=== PATIENT | female | born 1945 | race Caucasian/White ===

== ENCOUNTER → 2022-09-27 12:22 | Outpatient (CLI) | payer MEDICARE, OTHER, SELFPAY ==
--- NOTE | 2022-09-27 12:32 | XR_ITS ---
FINAL REPORT CLINICAL HISTORY: Shortness of breath ,EMPHYSEMA,LUNG CANCER COMPARISON: None FINDINGS: Two views of the chest were obtained. The heart size and pulmonary vascularity are within normal limits. The mediastinum is normal. Right suprahilar mass measuring 4.5 cm worrisome for neoplasm. Right base nodule measuring 6 mm, uncertain if calcified. Mild right base atelectasis or scarring. There is no pneumothorax. The bony thorax is intact. IMPRESSION: 4.5 cm right suprahilar mass worrisome for neoplasm. Recommend chest CT. Reviewed, Interpreted and Dictated by Alejandro Medley III, MD Transcribed by Yanelis Ureña Authenticated and [facility]
== END ==
PROVIDERS: PCP Internal Medicine Adolescent Medicine; Visit Provider Internal Medicine Adolescent Medicine
DX: R06.02 Shortness of breath (principal); J43.1 Panlobular emphysema; C34.90 Malignant neoplasm of unspecified part of unspecified bronchus or lung
CPT/HCPCS: 71046

== ENCOUNTER 2022-10-05 07:39 | Outpatient (RCR) | payer MEDICARE, OTHER, SELFPAY ==
--- NOTE | 2022-10-05 16:41 | HMH.PTOPWND ---
Rehab Outpt Wound Evaluation Rehab OP Wound Evaluation Start: 10/05/22 16:23 Freq: Status: Active Protocol: Document 10/05/22 16:24 FRANCIS (Rec: 10/05/22 16:41 PHORNE [id number]) E-signed By Robert Matthew, PT Subjective/History History History This is the initial PT eval for Disha Ramirez, 77 yowf who presents with R inferior lateral scapula wound present for ~ 3 wks. She has hx of metastatic cancer and had a punch biopsy performed, complicated by inability to reach hemostasis at the time of service despite sutures being placed. She has had continued sanguineous drainge from the site since that time. She presents this date with a rather large area of likely hematoma with total area ~ 20 cm in circumference and an area at the center surrounding the wound ~ 5 cm in circumference that is extremely indurated and hard to palption. She is currently receiving infusion therapy for her underlying metastatic disease and is planning to start XRT treatments very soon . She currently requires constant O2 via NC. Subjective Subjective Pt reports 2/4 TTP in the wound and silver-wound skin. Significant erythema, hematoma underlying, a dry sloughing skin at the extreme borders of the hematoma. Hemostais remains unachieved and significant sanguineous drainage noted this date on her current dressing. MLD contraindicated due to active metastatic cancer and Compression results in severe pain. Wound Eval Wound Right Upper Lateral Back Wound Type Incision Is This a Chronic Wound Yes Wound Length (cm) 1.3 Wound Width (cm) 1.5 Wound Depth (cm)
== END 2022-10-05 09:40 | disposition home or self-care (01) ==
LOC: PT 07:39
PROVIDERS: Visit Provider Internal Medicine Adolescent Medicine
DX: S21.201A Unspecified open wound of right back wall of thorax without penetration into thoracic cavity, initial encounter (principal)
CPT/HCPCS: 97163

== ENCOUNTER 2022-11-16 00:04 | Inpatient (IN) | payer MEDICARE, OTHER, SELFPAY ==
[2022-11-16] VITALS (23 sets, daily range): BP systolic 98–155; BP diastolic 42–60; PULSE 81–125; RESP 18–22; TEMP 36.7–37.7; O2SAT 93–100; BMI 26.5; BMI 26.7
--- NOTE | 2022-11-16 | ECG_ITS ---
APPROVED REPORT Exam: Resting ECG HR:111 bpm ECG Measurements Heart Rate 111 AXES MD 131 P 145 QRSd 81 QRS 124 QT 338 T 38 QTc 403 Conclusion ECTOPIC ATRIAL TACHYCARDIA WITH FREQUENT VENTRICULAR PREMATURE COMPLEXES POSSIBLE RIGHT VENTRICULAR HYPERTROPHY [SOME/ALL OF: PROMINENT R IN V1, LATE TRANSITION, RAD, VICKI, SSS] ABNORMAL ECG UNCONFIRMED REPORT Electronically signed by : Harrison Carmona MD 11/17/2022 08:50:22
--- NOTE | 2022-11-16 00:29 | CT_ITS ---
PROCEDURE INFORMATION: Exam: CTA Chest With Contrast Exam date and time: 11/16/2022 1:05 AM Age: 77 years old Clinical indication: Shortness of breath; Prior surgery; Surgery date: 1-6 months; Surgery type: Right biopsy approx. 8 weeks ago; Patient HX: Right post. Soft tissue redness/swelling; Additional info: SOA, HX dvt/pe now off anticoags, HX met lung CA TECHNIQUE: Imaging protocol: Computed tomographic angiography of the chest with contrast. Exam focused on the arteries. 3D rendering (Not supervised by radiologist): MIP and/or 3D reconstructed images were created by the technologist. Radiation optimization: All CT scans at this facility use at least one of these dose optimization techniques: automated exposure control; mA and/or kV adjustment per patient size (includes targeted exams where dose is matched to clinical indication); or iterative reconstruction. Contrast material: ISOVUE; Contrast volume: 70 ml; Contrast route: INTRAVENOUS (IV); REPORTING DATA: Count of CT and Cardiac NM exams in prior 12 months: This patient has received 0 known CTs and 0 known cardiac nuclear medicine studies in the 12 months prior to the current study. COMPARISON: CR XR CHEST 2V 09/27/2022 12:53 PM FINDINGS: Pulmonary arteries: There is no intraluminal filling defect to suggest a pulmonary embolus. Aorta: Unremarkable. No aortic aneurysm. No aortic dissection. Lungs: Right suprahilar soft tissue mass measuring 4.2 cm in size. There are moderate severe emphysematous changes. There is a spiculated 0.8 x 1.3 cm right apical lesion. There are atelectatic changes of the mid and lower lung zones. Calcified granuloma is noted within superior segment left lower lobe. Pleural spaces: Unremarkable. No pneumothorax. No pleural effusion. Heart: Small pericardial effusion. Lymph nodes: There is significant right axial lymphadenopathy. Largest node measures 3.4 cm in size. Several larger nodes have necrotic central regions. 3.1 cm celiac lymph node image 114 measuring 3.1 cm having necrotic central component. Bones/joints: There are sclerotic lesions involving the C7, T8, T9, T10, T12 vertebral bodies and the sternum consistent with metastatic disease. Soft tissues: There are 2 body wall lesions noted. One posterolaterally on the right at the T9 level measuring 6.8 cm in size and having a necrotic central region. The 2nd body wall lesion is posteriorly on the right at the T10 level measuring 2.7 cm also having necrotic central component. 1.1 cm retroperitoneal soft tissue nodule on the left at the level of the mid left kidney image 129 series 5. 2.5 cm hypodense segment 3 Paddock lesion not fully characterized. IMPRESSION: 1. No pulmonary embolus. 2. 4.2 cm right suprahilar soft tissue mass consistent with primary lung neoplasm. 3. Spiculated 0.8 x 1.3 cm right apical lesion likely representing metastatic disease. 4. Right axillary lymphadenopathy and right body wall lesions consistent with metastatic disease. 5. Thoracic spine and sternal sclerotic lesions consistent with metastatic disease. 6. Upper abdominal lymphadenopathy and left retroperitoneal soft tissue nodule consistent with metastatic disease. 7. Incompletely evaluated 2.5 cm hypodense lesion segment 3 of the liver.
[2022-11-16 00:38] LABS: Basophils # 0.1 K/mm3 (0-0.2); Basophils % 0.1 % (0.1-2.0); Eosinophils % 0.3 % (0.1-12.0); Hemoglobin 7.5 g/dL (12.2-16.2); Monocytes # 1.4 K/mm3 (0.1-1.0); Monocytes % 2.9 % (1.7-9.3)
[2022-11-16 00:42] LABS: Alanine Aminotransferase 22 U/L (12-78); Albumin Level 2.6 g/dl (3.5-5.0); Albumin/Globulin Ratio 0.9 (1.1-1.8); Alkaline Phosphatase 118 U/L (38-126); Anion Gap 12.6 mEq/L (5-15); Aspartate Amino Transferase 21 U/L (14-36); Bilirubin,Total 0.4 mg/dl (0.2-1.3); Blood Urea Nitrogen 17 mg/dl (7-17); Calcium 7.9 mg/dl (8.4-10.2); Carbon Dioxide 24 mmol/L (22.0-30.0); Chloride 99 mmol/L (98-107); Estimated Glomerular Filt Rate 48 ml/min (>60); GFR (African American) 58 ML/MIN (>60); Globulin 2.8 g/dL (1.3-3.2); Glucose 147 mg/dl (74-100); Potassium 4.6 mmoL/L (3.5-5.1); Sodium 131 mmol/L (136-145); Total Protein,Serum 5.4 g/dl (6.3-8.2)
[2022-11-16 00:43] LABS: Creatinine Clearance Estimated 45 mL/min (50-200)
--- NOTE | 2022-11-16 00:45 | PC.NURSE ---
ER notified of sepsis protocol with patient, orders placed, 1set of cultures have been sent
[2022-11-16 00:48] LABS: VBG Base Excess -6.3 mmol/L (-2.4-2.3); VBG HCO3 19.7 mmol/L (23-30); VBG Oxygen Saturation 94.5 % (50-70); VBG PH 7.32 mmol/L (7.31-7.41); VBG PO2 81.4 mmol/L (28-40); VBG Total CO2 20.9 mmol/L (23-27)
--- NOTE | 2022-11-16 00:53 | ECG_ITS ---
APPROVED REPORT Exam: Resting ECG HR:100 bpm ECG Measurements Heart Rate 100 AXES DE 133 P 68 QRSd 86 QRS 61 QT 341 T 24 QTc 398 Conclusion SINUS TACHYCARDIA LOW QRS VOLTAGE IN PRECORDIAL LEADS [QRS DEFLECTION < 1.0 mV IN CHEST LEADS] POSSIBLE RIGHT VENTRICULAR CONDUCTION DELAY [RSR (QR) IN V1/V2] ABNORMAL RHYTHM ECG UNCONFIRMED REPORT Electronically signed by : Harrison Carmona MD 11/17/2022 08:50:25
[2022-11-16 00:55] LABS: Eosinophils # 0.2 K/mm3 (0.0-0.4); Hematocrit 24.7 % (37.0-47.0); Lymphocytes # 1.1 K/mm3 (0.7-4.5); Lymphocytes % 2.3 % (10-50); Mean Corpuscular HGB Conc 30.2 g/dL (31.8-35.4); Mean Corpuscular Hemoglobin 26.6 pg (27.0-31.2); Mean Platelet Volume 9.4 fl (7.4-10.4); Neutrophils # 46.2 K/mm3 (1.8-7.8); Neutrophils % 94.3 % (37.0-80.0); Platelet Count 404 K/mm3 (142-424); Red Cell Distribution Width 16.6 % (11.5-17.5)
--- NOTE | 2022-11-16 00:56 | HMH.EDGENADL ---
Discharge Plan Disposition Patient Disposition: Admitted Condition: Good Clinical Impressions Clinical Impression: Sepsis, Cellulitis, Respiratory failure, Lung cancer, primary, with metastasis from lung to other site, Hyponatremia Discharge ED Provider: Ronnie Grant General Adult HPI General Chief complaint: Shortness of Breath/Dyspnea Stated complaint: poss sepsis Time Seen by Provider: 11/16/22 00:07 Mode of Arrival: Wheelchair Source of Information: Patient and Relative Limitations: No Limitations Description of Symptoms (Recalled from ER Triage Doc. by RN): Pt was sent by pcp for sepsis, due to skin infection from punch biopsy 8 weeks ago, pt has a complex hx of stage 4 lung cx with mets. History of Present Illness HPI narrative: 77-year-old female history of stage IV lung cancer presents with multiple complaints and concern for sepsis. She was diagnosed with lung cancer last year, has gone through multiple rounds of chemo and radiation. She is currently not on any therapy. She has history of DVT and PE but has been off anticoagulation until recently due to GI bleeding (unknown source) and significant anemia. She has a chronic 3 L oxygen requirement. On arrival she reports primarily shortness of breath and pain. She has also been having intermittent fever at home for the last 3 days. She has an intermittent wet productive cough recently. She has had decreased p.o. intake of late. She has a large left-sided posterior thoracic soft tissue mass that has been present for a long time, it is larger, more erythematous, now having malodorous drainage. She had a recent CT scan which showed extensive metastatic disease, large necrotic soft tissue mass, worsening intrathoracic lymphadenopathy, small pericardial effusion. Related Data Home Medications Medication Instructions Recorded Confirmed acetaminophen 325 mg tablet 650 mg PO QID PRN Pain, Mild 11/16/22 11/16/22 (Tylenol) apixaban 2.5 mg tablet (Eliquis) 2.5 mg PO BID Blood Thinner 11/16/22 11/16/22 atorvastatin 20 mg tablet 20 mg PO HS High Cholesterol 11/16/22 11/16/22 budesonide 160 mcg-glycopyr 9 2 puff inhalation BID Breathing 11/16/22 11/16/22 mcg-formot 4.8 mcg/actuation HFA Problems inhaler (Breztri Aerosphere) bumetanide 1 mg tablet 1 mg PO DAILY Diuretic 11/16/22 11/16/22 cetirizine 10 mg tablet (Zyrtec) 10 mg PO DAILY Allergy Symptoms 11/16/22 11/16/22 ferrous gluconate 324 mg (37.5 mg 324 mg PO BID Supplement 11/16/22 11/16/22 iron) tablet guaifenesin 600 mg tablet, 600 mg PO BID Cough 11/16/22 11/16/22 extended release 12 hr (Mucinex) hydroxyzine HCl 25 mg tablet 25 mg PO HS Anxiety 11/16/22 11/16/22 ipratropium 0.5 mg-albuterol 3 mg 3 ml inhalation Q4H PRN Breathing 11/16/22 11/16/22 (2.5 mg base)/3 mL nebulization Problems soln levothyroxine 25 mcg tablet 25 mcg PO DAILY Thyroid 11/16/22 11/16/22 (Synthroid) metoprolol succinate 25 mg 25 mg PO DAILY High Blood Pressure 11/16/22 11/16/22 tablet,extended release 24 hr (Toprol XL) mirtazapine 15 mg tablet 15 mg PO HS Restless legs 11/16/22 11/16/22 oxycodone 5 mg tablet 5 mg PO Q4H PRN Pain, Moderate 11/16/22 11/16/22 pantoprazole 40 mg tablet,delayed 40 mg PO DAILY Acid Reflux 11/16/22 11/16/22 release (Protonix) potassium chloride 20 mEq 10 meq PO BID Supplement 11/16/22 11/16/22 tablet,extended release pregabalin 25 mg capsule 25 mg PO HS Restless legs 11/16/22 11/16/22 roflumilast 500 mcg tablet 500 mcg PO DAILY Copd 11/16/22 11/16/22 (Daliresp) Allergies Allergy/AdvReac Type Severity Reaction Status Date / Time No Known Allergies Allergy Verified 11/16/22 00:33 [facility] Disclaimer: The information contained in this section may have been updated after the patient was seen, as this information can be updated by other users. Medical History (Updated 11/16/22 @ 02:55 by Ronnie Grant MD) Chronic pain COPD (chronic obstructive pulmonary disease) DVT (deep
[2022-11-16 01:00] LABS: MANUAL DIFFERENTIAL MANUAL DIFFERENTIAL (MANUAL DIFF)
--- NOTE | 2022-11-16 01:00 | PC.NURSE ---
Critical WBC of 49 reported to
[2022-11-16 01:26] LABS: Lymphocytes % 4 % (10-50); Monocytes % 2 % (2-9); Neutrophils % 73 % (42-76); Platelet Estimate Normal; RBC Morphology Normal; Total Cells Counted 100
[2022-11-16 01:27] LABS: Hypochromasia 1+
--- NOTE | 2022-11-16 02:59 | PC.NURSE ---
Report to RASHE[facility] Medina. Awaiting transport from 2nd floor
--- NOTE | 2022-11-16 03:13 | PC.NURSE ---
Patient arrived to floor via stretcher at 03:12.
[2022-11-16 03:28] LABS: Appearance,Urine CLEAR (Clear); Bilirubin,Urine Negative (Negative); Blood, Urine 2+ (Negative); Color,Urine YELLOW (Yellow); Glucose,Urine (UA) Negative (Negative); Ketones,Urine Negative (Negative); Leukocyte Esterase,Urine Negative (Negative); Microscopic, Urine URINE MICROSCOPIC (MICROSCOPIC); Nitrate,Urine Negative (Negative); Protein,Urine TRACE (Negative); Urobilinogen,Urine 0.2 EU/dl (0.2)
[2022-11-16 03:50] LABS: RBC,Urine 20-50 #/hpf (0-3); Squamous Epithelial Cell,Urine 20-50 #/hpf (0-5)
--- NOTE | 2022-11-16 07:53 | US_ITS ---
FINAL REPORT CLINICAL HISTORY: right upper back mass - eval for fluid/abscess FINDINGS: US CHEST Limited sonographic images were obtained of the right back. At the area of interest is a heterogeneous mass measuring 6.7 x 6.7 cm most worrisome for neoplasm. IMPRESSION: 6.7 cm mass at the area of interest most worrisome for neoplasm. Reviewed, Interpreted and Dictated by Alejandro Medley III, MD Transcribed by Lobo Go Authenticated and [facility]
--- NOTE | 2022-11-16 07:56 | EXP.HP ---
History of Present Illness *Admission Date: 11/16/22 *Reason for visit:: Sepsis, back cellulitis, metastatic lung cancer *History of present illness: 77-year-old female with history of COPD, and lung cancer, diagnosed several months ago, with widespread metastasis to bone, liver, now pancreas, lymph nodes and right back chest wall. She, approximately 6 weeks ago, had a biopsy of the chest wall spot done in [place], it was a punch biopsy and as the patient was on Eliquis at the time she had significant bleeding. The bleeding was attempted to be stopped with silver nitrate application but moderately unsuccessful. She continued to bleed, had a lot of swelling and pain. I saw her a couple of days after the incident we prescribed antibiotics which seemed to improve her situation. In the interim, she has been in [place] getting chemotherapy and radiation, her last session was 6 weeks ago[address] Had a CT scan 2 days ago that unfortunately showed significant disease progression and spite of aggressive chemotherapy. Late last night she began to have fevers, increasing drainage from the right back tumor, surrounding redness and tachycardia. Brought to the ER here given her preference to be admitted at [facility] rather than in [place] secondary to family location here. In the ER she was found to have significant leukocytosis, evidence of sepsis with tachycardia, given Zosyn and vancomycin and admitted to the hospital. This morning she is in good spirits, pleasant in spite of her disease and pain and reports that she is little short of breath at baseline and otherwise more comfortable than on admission. [facility] Disclaimer: The information contained in this section may have been updated after the patient was seen, as this information can be updated by other users. Medical History (Updated 11/16/22 @ 02:55 by Ronnie Grant MD) Chronic pain COPD (chronic obstructive pulmonary disease) DVT (deep venous thrombosis) GI bleed Hypertension Pulmonary embolism RLS (restless legs syndrome) Seasonal allergic rhinitis Stage IV squamous cell carcinoma of lung Surgical History (Updated 11/16/22 @ 03:58 by Carol Dickson RN) History of appendectomy Family History (Updated 11/16/22 @ 03:59 by Carol Dickson RN) Family history of breast cancer Family history of diabetes mellitus Family history of hypertension Social History (Updated 11/16/22 @ 03:55 by Carol Cuba, RN) Smoking Status: Former smoker alcohol intake: never current occupational status: retired Travel in the last 8 weeks: None Meds Home Medications and Allergies Home Medications Medication Instructions Recorded Confirmed Type acetaminophen 325 mg tablet 650 mg PO QID PRN Pain, Mild 11/16/22 11/16/22 History (Tylenol) apixaban 2.5 mg tablet (Eliquis) 2.5 mg PO BID Blood Thinner 11/16/22 11/16/22 History atorvastatin 20 mg tablet 20 mg PO HS High Cholesterol 11/16/22 11/16/22 History budesonide 160 mcg-glycopyr 9 2 puff inhalation BID Breathing 11/16/22 11/16/22 History mcg-formot 4.8 mcg/actuation HFA Problems inhaler (Breztri Aerosphere) bumetanide 1 mg tablet 1 mg PO DAILY Diuretic 11/16/22 11/16/22 History cetirizine 10 mg tablet (Zyrtec) 10 mg PO DAILY Allergy Symptoms 11/16/22 11/16/22 History ferrous gluconate 324 mg (37.5 mg 324 mg PO BID Supplement 11/16/22 11/16/22 History iron) tablet guaifenesin 600 mg tablet, 600 mg PO BID Cough 11/16/22 11/16/22 History extended release 12 hr (Mucinex) hydroxyzine HCl 25 mg tablet 25 mg PO HS Anxiety 11/16/22 11/16/22 History ipratropium 0.5 mg-albuterol 3 mg 3 ml inhalation Q4H PRN Breathing 11/16/22 11/16/22 History (2.5 mg base)/3 mL nebulization Problems soln levothyroxine 25 mcg tablet 25 mcg PO DAILY Thyroid 11/16/22 11/16/22 History (Synthroid) metoprolol succinate 25 mg 25 mg PO DAILY High Blood Pressure 11/16/22 11/16/22 History tablet,extended release 24 hr (Toprol XL)
--- NOTE | 2022-11-16 08:18 | EXP.PHA.CONS ---
Pharmacy Consult Date: 11/16/22 Time: 08:18 Referring provider: DR. WHALEN Reason for Consult:: VANCOMYCIN DOSING Allergies Allergy/AdvReac Type Severity Reaction Status Date / Time No Known Allergies Allergy Verified 11/16/22 00:33 Home Medications Medication Instructions Recorded Confirmed Type acetaminophen 325 mg tablet 650 mg PO QID PRN Pain, Mild 11/16/22 11/16/22 History (Tylenol) apixaban 2.5 mg tablet (Eliquis) 2.5 mg PO BID Blood Thinner 11/16/22 11/16/22 History atorvastatin 20 mg tablet 20 mg PO HS High Cholesterol 11/16/22 11/16/22 History budesonide 160 mcg-glycopyr 9 2 puff inhalation BID Breathing 11/16/22 11/16/22 History mcg-formot 4.8 mcg/actuation HFA Problems inhaler (Breztri Aerosphere) bumetanide 1 mg tablet 1 mg PO DAILY Diuretic 11/16/22 11/16/22 History cetirizine 10 mg tablet (Zyrtec) 10 mg PO DAILY Allergy Symptoms 11/16/22 11/16/22 History ferrous gluconate 324 mg (37.5 mg 324 mg PO BID Supplement 11/16/22 11/16/22 History iron) tablet guaifenesin 600 mg tablet, 600 mg PO BID Cough 11/16/22 11/16/22 History extended release 12 hr (Mucinex) hydroxyzine HCl 25 mg tablet 25 mg PO HS Anxiety 11/16/22 11/16/22 History ipratropium 0.5 mg-albuterol 3 mg 3 ml inhalation Q4H PRN Breathing 11/16/22 11/16/22 History (2.5 mg base)/3 mL nebulization Problems soln levothyroxine 25 mcg tablet 25 mcg PO DAILY Thyroid 11/16/22 11/16/22 History (Synthroid) metoprolol succinate 25 mg 25 mg PO DAILY High Blood Pressure 11/16/22 11/16/22 History tablet,extended release 24 hr (Toprol XL) mirtazapine 15 mg tablet 15 mg PO HS Restless legs 11/16/22 11/16/22 History oxycodone 5 mg tablet 5 mg PO Q4H PRN Pain, Moderate 11/16/22 11/16/22 History pantoprazole 40 mg tablet,delayed 40 mg PO DAILY Acid Reflux 11/16/22 11/16/22 History release (Protonix) potassium chloride 20 mEq 10 meq PO BID Supplement 11/16/22 11/16/22 History tablet,extended release pregabalin 25 mg capsule 25 mg PO HS Restless legs 11/16/22 11/16/22 History roflumilast 500 mcg tablet 500 mcg PO DAILY Copd 11/16/22 11/16/22 History (Daliresp) New Prescriptions to Start Prescriptions: Height: 1.6 m Weight: 68.549 kg Laboratory Results:: Laboratory Results - last 24 hr 11/16/22 00:19: WBC 49.0 H*, RBC 2.80 L, Hgb 7.5 L, Hct 24.7 L, MCV 88.0, MCH 26.6 L, MCHC 30.2 L, RDW 16.6, Plt Count 404, MPV 9.4, Neut % (Auto) 94.3 H, Lymph % (Auto) 2.3 L, Carver % (Auto) 2.9, Eos % (Auto) 0.3, Baso % (Auto) 0.1, Neut # (Auto) 46.2 H, Lymph # (Auto) 1.1, Carver # (Auto) 1.4 H, Eos # (Auto) 0.2, Baso # (Auto) 0.1, Total Counted 100, Neutrophils % (Manual) 73, Band Neutrophils % 21.0 H, Lymphocytes % (Manual) 4 L, Monocytes % (Manual) 2, Platelet Estimate Normal, RBC Morphology Normal, Hypochromasia 1+, Sodium 131 L, Potassium 4.6, Chloride 99, Carbon Dioxide 24, Anion Gap 12.6, BUN 17, Creatinine 1.10 H, Estimated Creat Clear 45, Estimated GFR 48 L, Est GFR ( Amer) 58 L, Glucose 147 H, Calcium 7.9 L, Total Bilirubin 0.4, AST 21, ALT 22, Alkaline Phosphatase 118, Total Protein 5.4 L, Albumin 2.6 L, Globulin 2.8, Albumin/Globulin Ratio 0.9 L 11/16/22 00:31: VBG pH 7.32, VBG pCO2 39.0, VBG pO2 81.4 H, VBG HCO3 19.7 L, VBG Total CO2 20.9 L, VBG O2 Saturation 94.5 H, VBG Base Excess -6.3 L 11/16/22 03:10: Blood Type B Positive, Antibody Screen Negative, Crossmatch (AHG) See Detail 11/16/22 03:23: Urine Color Yellow, Urine Appearance Clear, Urine pH 6.0, Ur Specific [place] 1.020, Urine Protein Trace, Urine Glucose (UA) Negative, Urine Ketones Negative, Urine Blood 2+, Urine Nitrate Negative, Urine Bilirubin Negative, Urine Urobilinogen 0.2, Ur Leukocyte Esterase Negative, Urine RBC 20-50, Urine WBC 5-10, Ur Squamous Epith Cells 20-50, Urine Bacteria None 11/16/22 07:05: Blood Type Confirm B Positive Medical History: Medical History (Updated 11/16/22 @ 02:55 by Ronnie Grant MD) Chronic pain COPD (chronic obstructive pulmonary d
--- NOTE | 2022-11-16 11:00 | HMH.PTEV ---
Physical Therapy Evaluation Rehab PT IP Evaluation Start: 11/16/22 07:52 Freq: ONCE Status: Active Protocol: Document 11/16/22 10:52 PHORBARBARA (Rec: 11/16/22 11:00 PHORNE [id number]) Subjective/History History History 77 yowf adm to [facility] with sepsis . Hx of COPD, lung cancer with mult mets to bone, liver, pancreas, lymph nodes, chest wall. She lives alone at baseline, and was independent with all mobility until ~ 1 mo ago. SHe now requires 24 hr assistance at home. R lateral thoracic wound after punch biopsy several mos ago that has continued to increase in size since that time. Subjective Subjective Pt reports increased pain in the silver-wound skin. Hard mass possible hematoma vs metastasis ~ baseball size. Increased SOA with all mobility despite oxygen on via [place]. New diagnosis of cancer in past 12 Yes months? Rehab PT IP Eval Objective Appearance Patient Behavior Appropriate Patient Orientation Person,Place,Time Difficulty following instructions none Speech Pattern Clear Ambulation Patient Able to Ambulate No Balance Ability to Arise Able, uses arms to help Sitting Balance Steady, safe Standing Balance Unsteady Dynamic Sitting Balance Ability Good Dynamic Standing Balance Ability Poor Transfers Bed Transfer Ability Contact Guard/Hand Hold Chair Transfer Ability Minimal x 1 (25% assist) Sit to Stand Bed Transfer Ability Minimal x 1 (25% assist) Sit to Stand Chair Transfer Ability Minimal x 1 (25% assist) Rehab PT IP prob,goals,plan Problems Date of Evaluation: 11/16/22 PT IP Problems Bed Mobility,Transfers,Gait Rehab Potential Rehab Potential Fair Plan PT Intervention Plan Bed Mobility,Transfers,Gait, Therapeutic Exercise PT Plan Frequency Daily Duration LOS Discharge Goals Bed Transfer Ability Contact Guard/Hand Hold Sit to Stand Chair Transfer Ability Contact Guard/Hand Hold Ambulation Assistive Device Rolling Walker Ambulation Distance (feet) 10 Discharge Plan PT Discharge Plan Pt is currently appropriate to
--- NOTE | 2022-11-16 11:07 | HMH.OTEV ---
OT Inpatient Evaluation Rehab OT IP Evaluation Start: 11/16/22 07:52 Freq: ONCE Status: Active Protocol: Document 11/16/22 11:02 DREADSAVAGE (Rec: 11/16/22 11:07 GITA [id number]) Rehab OT IP Assessment Subjective History 77-year-old female with history of COPD, and lung cancer, diagnosed several months ago, with widespread metastasis to bone, liver, now pancreas, lymph nodes and right back chest wall. She, approximately 6 weeks ago , had a biopsy of the chest wall spot done in [place], it was a punch biopsy and as the patient was on Eliquis at the time she had significant bleeding. The bleeding was attempted to be stopped with silver nitrate application but moderately unsuccessful. She continued to bleed, had a lot of swelling and pain. I saw her a couple of days after the incident we prescribed antibiotics which seemed to improve her situation. In the interim, she has been in [place] getting chemotherapy and radiation, her last session was 6 weeks ago[address] Had a CT scan 2 days ago that unfortunately showed significant disease progression and spite of aggressive chemotherapy. Late last night she began to have fevers, increasing drainage from the right back tumor, surrounding redness and tachycardia. Brought to the ER here given her preference to be admitted at [facility] rather than in [place] secondary to family location here. In the ER she was found to have significant leukocytosis, evidence of sepsis with tachycardia, given Zosyn and
--- NOTE | 2022-11-16 11:28 | HMH.PTEV ---
Physical Therapy Evaluation Rehab PT IP Evaluation Start: 11/16/22 07:52 Freq: ONCE Status: Active Protocol: Document 11/16/22 10:52 PHORBARBARA (Rec: 11/16/22 11:00 PHORNE [id number]) Subjective/History History History 77 yowf adm to [facility] with sepsis . Hx of COPD, lung cancer with mult mets to bone, liver, pancreas, lymph nodes, chest wall. She lives alone at baseline, and was independent with all mobility until ~ 1 mo ago. SHe now requires 24 hr assistance at home. R lateral thoracic wound after punch biopsy several mos ago that has continued to increase in size since that time. Subjective Subjective Pt reports increased pain in the silver-wound skin. Hard mass possible hematoma vs metastasis ~ baseball size. Increased SOA with all mobility despite oxygen on via [place]. New diagnosis of cancer in past 12 Yes months? Rehab PT IP Eval Objective Appearance Patient Behavior Appropriate Patient Orientation Person,Place,Time Difficulty following instructions none Speech Pattern Clear Ambulation Patient Able to Ambulate No Balance Ability to Arise Able, uses arms to help Sitting Balance Steady, safe Standing Balance Unsteady Dynamic Sitting Balance Ability Good Dynamic Standing Balance Ability Poor Transfers Bed Transfer Ability Contact Guard/Hand Hold Chair Transfer Ability Minimal x 1 (25% assist) Sit to Stand Bed Transfer Ability Minimal x 1 (25% assist) Sit to Stand Chair Transfer Ability Minimal x 1 (25% assist) Rehab PT IP prob,goals,plan Problems Date of Evaluation: 11/16/22 PT IP Problems Bed Mobility,Transfers,Gait Rehab Potential Rehab Potential Fair Plan PT Intervention Plan Bed Mobility,Transfers,Gait, Therapeutic Exercise PT Plan Frequency Daily Duration LOS Discharge Goals Bed Transfer Ability Contact Guard/Hand Hold Sit to Stand Chair Transfer Ability Contact Guard/Hand Hold Ambulation Assistive Device Rolling Walker Ambulation Distance (feet) 10 Discharge Plan PT Discharge Plan Pt is currently appropriate to
--- NOTE | 2022-11-16 11:30 | EXP.SURG.CON ---
History of Present Illness *Admission Date: 11/16/22 *Reason for visit:: Evaluate for drainage options of back tumor *History of present illness: The following is obtained from the admission history and physical: 77-year-old female with history of COPD, and lung cancer, diagnosed several months ago, with widespread metastasis to bone, liver, now pancreas, lymph nodes and right back chest wall. She, approximately 6 weeks ago, had a biopsy of the chest wall spot done in [place], it was a punch biopsy and as the patient was on Eliquis at the time she had significant bleeding. The bleeding was attempted to be stopped with silver nitrate application but moderately unsuccessful. She continued to bleed, had a lot of swelling and pain. I saw her a couple of days after the incident we prescribed antibiotics which seemed to improve her situation. In the interim, she has been in [place] getting chemotherapy and radiation, her last session was 6 weeks ago[address] Had a CT scan 2 days ago that unfortunately showed significant disease progression and spite of aggressive chemotherapy. Late last night she began to have fevers, increasing drainage from the right back tumor, surrounding redness and tachycardia. Brought to the ER here given her preference to be admitted at [facility] rather than in [place] secondary to family location here. In the ER she was found to have significant leukocytosis, evidence of sepsis with tachycardia, given Zosyn and vancomycin and admitted to the hospital. This morning she is in good spirits, pleasant in spite of her disease and pain and reports that she is little short of breath at baseline and otherwise more comfortable than on admission. [facility] Disclaimer: The information contained in this section may have been updated after the patient was seen, as this information can be updated by other users. Medical History (Updated 11/16/22 @ 02:55 by Ronnie Grant MD) Chronic pain COPD (chronic obstructive pulmonary disease) DVT (deep venous thrombosis) GI bleed Hypertension Pulmonary embolism RLS (restless legs syndrome) Seasonal allergic rhinitis Stage IV squamous cell carcinoma of lung Surgical History (Updated 11/16/22 @ 03:58 by Carol Dickson RN) History of appendectomy Family History (Updated 11/16/22 @ 03:59 by Carol Dickson RN) Family history of breast cancer Family history of diabetes mellitus Family history of hypertension Social History (Updated 11/16/22 @ 03:55 by Carol Dickson RN) Smoking Status: Former smoker alcohol intake: never current occupational status: retired Travel in the last 8 weeks: None Meds Home Medications and Allergies Home Medications Medication Instructions Recorded Confirmed Type acetaminophen 325 mg tablet 650 mg PO QID PRN Pain, Mild 11/16/22 11/16/22 History (Tylenol) apixaban 2.5 mg tablet (Eliquis) 2.5 mg PO BID Blood Thinner 11/16/22 11/16/22 History atorvastatin 20 mg tablet 20 mg PO HS High Cholesterol 11/16/22 11/16/22 History budesonide 160 mcg-glycopyr 9 2 puff inhalation BID Breathing 11/16/22 11/16/22 History mcg-formot 4.8 mcg/actuation HFA Problems inhaler (Breztri Aerosphere) bumetanide 1 mg tablet 1 mg PO DAILY Diuretic 11/16/22 11/16/22 History cetirizine 10 mg tablet (Zyrtec) 10 mg PO DAILY Allergy Symptoms 11/16/22 11/16/22 History ferrous gluconate 324 mg (37.5 mg 324 mg PO BID Supplement 11/16/22 11/16/22 History iron) tablet guaifenesin 600 mg tablet, 600 mg PO BID Cough 11/16/22 11/16/22 History extended release 12 hr (Mucinex) hydroxyzine HCl 25 mg tablet 25 mg PO HS Anxiety 11/16/22 11/16/22 History ipratropium 0.5 mg-albuterol 3 mg 3 ml inhalation Q4H PRN Breathing 11/16/22 11/16/22 History (2.5 mg base)/3 mL nebulization Problems soln levothyroxine 25 mcg tablet 25 mcg PO DAILY Thyroid 11/16/22 11/16/22 History (Synthroid) metoprolol succinate 25 mg 25 mg PO DAILY High Blood Pressure 11/16/22 10
--- NOTE | 2022-11-16 19:17 | PC.NURSE ---
Patient states better pain control this shift and better control of shortness of air.
[2022-11-17] VITALS (13 sets, daily range): BP systolic 98–123; BP diastolic 48–55; PULSE 108–129; RESP 19–22; TEMP 36.8–37.8; O2SAT 95–100; BMI 27.5
--- NOTE | 2022-11-17 03:20 | PC.NURSE ---
Pt is alert and oriented x4, Pt has experienced moderate to severe pain and has been treated with pain medications this shift, Pt has a abd pad on right sided back mass. Pt has requested brqng treatments multiple times this shift and continues to get short of breath, Pt O2 remains 98-100 range and remains on 3L, Pt denies pain at this time and has no needs.
[2022-11-17 06:26] LABS: Chloride 102 mmol/L (98-107); Sodium 131 mmol/L (136-145)
[2022-11-17 06:27] LABS: Basophils # 0.1 K/mm3 (0-0.2); Basophils % 0.1 % (0.1-2.0); Eosinophils # 0.1 K/mm3 (0.0-0.4); Eosinophils % 0.2 % (0.1-12.0); Lymphocytes # 0.7 K/mm3 (0.7-4.5); Lymphocytes % 1.7 % (10-50); Mean Corpuscular Hemoglobin 26.1 pg (27.0-31.2); Monocytes # 1.2 K/mm3 (0.1-1.0); Monocytes % 2.8 % (1.7-9.3); Neutrophils # 40.2 K/mm3 (1.8-7.8); Neutrophils % 95.2 % (37.0-80.0); Platelet Count 324 K/mm3 (142-424); Potassium 4.5 mmoL/L (3.5-5.1); Red Blood Count 2.37 M/mm3 (4.20-5.40); Red Cell Distribution Width 16.9 % (11.5-17.5)
[2022-11-17 06:29] LABS: Blood Urea Nitrogen 18 mg/dl (7-17); Creatinine Clearance Estimated 51 mL/min (50-200); Estimated Glomerular Filt Rate 53 ml/min (>60); GFR (African American) 65 ML/MIN (>60)
[2022-11-17 06:30] LABS: Anion Gap 9.5 mEq/L (5-15); Calcium 7.1 mg/dl (8.4-10.2); Carbon Dioxide 24 mmol/L (22.0-30.0); Glucose 117 mg/dl (74-100)
[2022-11-17 07:09] LABS: Hematocrit 20.6 % (37.0-47.0); Hemoglobin 6.2 g/dL (12.2-16.2); White Blood Count 42.2 K/mm3 (4.8-10.8)
[2022-11-17 07:10] LABS: MANUAL DIFFERENTIAL MANUAL DIFFERENTIAL (MANUAL DIFF)
[2022-11-17 07:42] LABS: Lymphocytes % 1 % (10-50); Monocytes % 2 % (2-9); Neutrophils % 97 % (42-76); Total Cells Counted 100
[2022-11-17 07:43] LABS: Hypochromasia 1+; Platelet Estimate Normal
[2022-11-17 08:04] LABS: Vancomycin,Trough 8.2 ug/mL (5.0-10.0)
--- NOTE | 2022-11-17 08:21 | EXP.ACUTE.PN ---
Subjective *Date: 11/17/22 *Time: 08:21 Interval history: Patient is feeling better. Still in some pain. Refused IV morphine. Has been using DuoNebs every 1 or 2 hours. Labs reviewed this morning. Medical Exam Vital signs and Labs for Last 24 Hours: Vital Signs Temp Pulse Pulse Resp BP Pulse Ox O2 Del Method 11/17/22 07:47 119 H 11/17/22 07:47 121 H 11/17/22 07:27 98.2 F 120 H 20 98/48 L 96 Nasal Cannula 11/17/22 06:37 Nasal Cannula 11/17/22 06:09 108 H 11/17/22 06:09 112 H 11/17/22 06:09 95 Nasal Cannula 11/17/22 04:45 Nasal Cannula 11/17/22 04:00 100.1 F H 109 H 20 100/52 L 99 Nasal Cannula 11/17/22 04:12 110 H 11/17/22 04:12 108 H 11/17/22 03:00 Nasal Cannula 11/17/22 03:07 108 H 11/17/22 03:07 108 H 11/17/22 00:00 100 Nasal Cannula 11/17/22 01:00 Nasal Cannula 11/16/22 23:00 Nasal Cannula 11/16/22 23:47 105 H 11/16/22 23:47 105 H 11/16/22 22:26 105 H 11/16/22 22:26 105 H 11/16/22 21:00 Nasal Cannula 11/16/22 20:00 107 H 100 Nasal Cannula 11/16/22 20:29 107 H 11/16/22 20:29 109 H 11/16/22 19:34 99.9 F H 109 H 18 115/54 L 100 Nasal Cannula 11/16/22 17:18 115 H 11/16/22 17:18 115 H 11/16/22 17:18 96 Nasal Cannula 11/16/22 15:14 98.8 F 117 H 19 155/55 H 97 Nasal Cannula 11/16/22 14:09 119 H 11/16/22 14:09 111 H 11/16/22 14:09 96 Nasal Cannula 11/16/22 12:40 114 H 11/16/22 12:40 114 H 11/16/22 12:40 98 Nasal Cannula 11/16/22 11:38 112 H 11/16/22 11:38 110 H 11/16/22 09:00 Room Air 11/16/22 09:33 94 L Nasal Cannula 11/16/22 09:33 124 H 11/16/22 09:33 125 H O2 Flow Rate 11/17/22 07:47 11/17/22 07:47 11/17/22 07:27 3 11/17/22 06:37 3 11/17/22 06:09 11/17/22 06:09 11/17/22 06:09 3 11/17/22 04:45 3 11/17/22 04:00 3 11/17/22 04:12 11/17/22 04:12 11/17/22 03:00 3 11/17/22 03:07 11/17/22 03:07 11/17/22 00:00 3 11/17/22 01:00 3 11/16/22 23:00 3 11/16/22 23:47 11/16/22 23:47 11/16/22 22:26 11/16/22 22:26 11/16/22 21:00 3 11/16/22 20:00 3 11/16/22 20:29 11/16/22 20:29 11/16/22 19:34 3 11/16/22 17:18 11/16/22 17:18 11/16/22 17:18 3.5 11/16/22 15:14 3 11/16/22 14:09 11/16/22 14:09 11/16/22 14:09 3.5 11/16/22 12:40 11/16/22 12:40 11/16/22 12:40 3.5 11/16/22 11:38 11/16/22 11:38 11/16/22 09:00 11/16/22 09:33 4 11/16/22 09:33 11/16/22 09:33 Intake and Output 11/16/22 11/17/22 11/17/22 19:59 03:59 11:59 Intake Total 710 / 1190 240 / 1190 240 / 1190 Output Total 0 / 0 0 / 0 Balance 710 / 1190 240 / 1190 240 / 1190 Intake: Intake, Oral Amount 710 / 1190 240 / 1190 240 / 1190 Output: Output, Urine Amount 0 / 0 0 / 0 Other: Number of Unmeasured Voids 1 1 1 Weight 155 lb 7 oz Patient Weight 11/17/22 11:59 Weight 155 lb 7 oz Laboratory Results - last 24 hr 11/17/22 06:02: WBC 42.2 H*, RBC 2.37 L, Hgb 6.2 L*, Hct 20.6 L*, MCV 87.0, MCH 26.1 L, MCHC 30.0 L, RDW 16.9, Plt Count 324, MPV 9.0, Neut % (Auto) 95.2 H, Lymph % (Auto) 1.7 L, [place] % (Auto) 2.8, Eos % (Auto) 0.2, Baso % (Auto) 0.1, Neut # (Auto) 40.2 H, Lymph # (Auto) 0.7, [place] # (Auto) 1.2 H, Eos # (Auto) 0.1, Baso # (Auto) 0.1, Total Counted 100, Neutrophils % (Manual) 97 H, Lymphocytes % (Manual) 1 L, Monocytes % (Manual) 2, Platelet Estimate Normal, Hypochromasia 1+, Sodium 131 L, Potassium 4.5, Chloride 102, Carbon Dioxide 24, Anion Gap 9.5, BUN 18 H, Creatinine 1.00, Estimated Creat Clear 51, Estimated GFR 53 L, Est GFR ( Amer) 65, Glucose 117 H, Calcium 7.1 L, Vancomycin Trough 8.2 I & O for Labs for Last 24 Hours: Intake & Output 11/14/22 11/15/22 11/16/22 11/17/22 11:59 11:59 11:59 11:59 Intake Total
--- NOTE | 2022-11-17 08:26 | EXP.PHA.CONS ---
Pharmacy Consult Date: 11/17/22 Time: 08:26 Referring provider: DR. WHALEN Reason for Consult:: VANCOMYCIN LEVEL AND DOSING Allergies Allergy/AdvReac Type Severity Reaction Status Date / Time No Known Allergies Allergy Verified 11/16/22 00:33 Home Medications Medication Instructions Recorded Confirmed Type acetaminophen 325 mg tablet 650 mg PO QID PRN Pain, Mild 11/16/22 11/16/22 History (Tylenol) apixaban 2.5 mg tablet (Eliquis) 2.5 mg PO BID Blood Thinner 11/16/22 11/16/22 History atorvastatin 20 mg tablet 20 mg PO HS High Cholesterol 11/16/22 11/16/22 History budesonide 160 mcg-glycopyr 9 2 puff inhalation BID Breathing 11/16/22 11/16/22 History mcg-formot 4.8 mcg/actuation HFA Problems inhaler (Breztri Aerosphere) bumetanide 1 mg tablet 1 mg PO DAILY Diuretic 11/16/22 11/16/22 History cetirizine 10 mg tablet (Zyrtec) 10 mg PO DAILY Allergy Symptoms 11/16/22 11/16/22 History ferrous gluconate 324 mg (37.5 mg 324 mg PO BID Supplement 11/16/22 11/16/22 History iron) tablet guaifenesin 600 mg tablet, 600 mg PO BID Cough 11/16/22 11/16/22 History extended release 12 hr (Mucinex) hydroxyzine HCl 25 mg tablet 25 mg PO HS Anxiety 11/16/22 11/16/22 History ipratropium 0.5 mg-albuterol 3 mg 3 ml inhalation Q4H PRN Breathing 11/16/22 11/16/22 History (2.5 mg base)/3 mL nebulization Problems soln levothyroxine 25 mcg tablet 25 mcg PO DAILY Thyroid 11/16/22 11/16/22 History (Synthroid) metoprolol succinate 25 mg 25 mg PO DAILY High Blood Pressure 11/16/22 11/16/22 History tablet,extended release 24 hr (Toprol XL) mirtazapine 15 mg tablet 15 mg PO HS Restless legs 11/16/22 11/16/22 History oxycodone 5 mg tablet 5 mg PO Q4H PRN Pain, Moderate 11/16/22 11/16/22 History pantoprazole 40 mg tablet,delayed 40 mg PO DAILY Acid Reflux 11/16/22 11/16/22 History release (Protonix) potassium chloride 20 mEq 10 meq PO BID Supplement 11/16/22 11/16/22 History tablet,extended release pregabalin 25 mg capsule 25 mg PO HS Restless legs 11/16/22 11/16/22 History roflumilast 500 mcg tablet 500 mcg PO DAILY Copd 11/16/22 11/16/22 History (Daliresp) New Prescriptions to Start Prescriptions: Height: 1.6 m Weight: 70.505 kg Laboratory Results:: Laboratory Results - last 24 hr 11/17/22 06:02: WBC 42.2 H*, RBC 2.37 L, Hgb 6.2 L*, Hct 20.6 L*, MCV 87.0, MCH 26.1 L, MCHC 30.0 L, RDW 16.9, Plt Count 324, MPV 9.0, Neut % (Auto) 95.2 H, Lymph % (Auto) 1.7 L, [place] % (Auto) 2.8, Eos % (Auto) 0.2, Baso % (Auto) 0.1, Neut # (Auto) 40.2 H, Lymph # (Auto) 0.7, [place] # (Auto) 1.2 H, Eos # (Auto) 0.1, Baso # (Auto) 0.1, Total Counted 100, Neutrophils % (Manual) 97 H, Lymphocytes % (Manual) 1 L, Monocytes % (Manual) 2, Platelet Estimate Normal, Hypochromasia 1+, Sodium 131 L, Potassium 4.5, Chloride 102, Carbon Dioxide 24, Anion Gap 9.5, BUN 18 H, Creatinine 1.00, Estimated Creat Clear 51, Estimated GFR 53 L, Est GFR ( Amer) 65, Glucose 117 H, Calcium 7.1 L, Vancomycin Trough 8.2 Medical History: Medical History (Updated 11/16/22 @ 02:55 by Ronnie Grant MD) Chronic pain COPD (chronic obstructive pulmonary disease) DVT (deep venous thrombosis) GI bleed Hypertension Pulmonary embolism RLS (restless legs syndrome) Seasonal allergic rhinitis Stage IV squamous cell carcinoma of lung Assessment and Plan Assessment and plan all Dx Assessment and Plan for all problems:: Pharmacokinetic dosing service Objective: Patient: Floor: Age: 77 yo Serum creatinine: 1 mg/dL Height: 63.0 Inches Weight (kg): 70.5 Assessment: IBW (kg): 52.40 Dosing wt(kg): 70.5 Estimated Creatinine clearance (ml/min): 37.7 CRCL method: Cockcroft and Gault using ibw(default). Drug selected: Vancomycin Loading dose (mg): 0 Vd (liters): 59.9 (factor used: 0.85 L/kg) Aidan (hr-1): 0.036 Half life (hrs): 19.25 Recommended dose: 1250 mg
--- NOTE | 2022-11-17 14:26 | DIET.NUTRFU ---
This RD met with patient and daughter today to review nutritional status. Patient has terminal CA, has lost 30# since last summer, probably 10# in the last couple months. She eats very little at most meals and not much protein. She dislikes all commercial supplements, did not want any protein powder mixed into her food. RD also reviewed hi calorie/hi protein foods that are available inbetween meals she could add. She is filling out menu and she will try to prioritize protein. She has a large left-sided posterior thoracic soft tissue mass, more erythematous, now having malodorous drainage. Large necrotic soft tissue mass, worsening intrathoracic lymphadenopathy, small pericardial effusion. Based on the weight loss, lack of appetite and terminal dx with delay in healing she triggers for severe PCM, will notify provider.
--- NOTE | 2022-11-17 18:35 | PC.NURSE ---
pt o2 on 3L, tolerating well untill ambulating to br. pt has had multiple prn breathing treatments this shift. pt has received round the clock pain meds with adequate pain control along with the fentanyl patch placed on lt arm. dsg to rt side of back changed this shift, wound culture collected. family at bs t/o shift, call castillo in reach. pt knows to call for help prior to getting out of bed, pt has been stand by/one assist.
[2022-11-18] VITALS (31 sets, daily range): BP systolic 83–137; BP diastolic 43–75; PULSE 97–122; RESP 16–24; TEMP 36.5–37.1; O2SAT 93–100; BMI 28.1
--- NOTE | 2022-11-18 05:07 | PC.NURSE ---
Patient did get some rest last night. Woke up unable very SOB. Reparatory therapy administered a breathing treatment and patient felt better. SOB is worse with exertion like walking to the bathroom. Has had pain thought the night see MAR. Patient seems to be well controlled with the pain management so far, No other issues noted
--- NOTE | 2022-11-18 08:44 | EXP.ACUTE.PN ---
Subjective *Date: 11/18/22 *Time: 08:44 Interval history: Overnight patient did fairly well. Continues to ask for nebulizer machine every 1 or 2 hours. Labs are pending this morning. Medical Exam Vital signs and Labs for Last 24 Hours: Vital Signs Temp Pulse Pulse Resp BP Pulse Ox O2 Del Method 11/18/22 08:00 117 H Nasal Cannula 11/18/22 07:40 117 H 11/18/22 07:40 115 H 11/18/22 07:40 98 Nasal Cannula 11/18/22 07:32 98.8 F 117 H 16 109/61 L 98 Nasal Cannula 11/18/22 06:52 Nasal Cannula 11/18/22 06:04 115 H 11/18/22 06:04 113 H 11/18/22 06:04 93 L Nasal Cannula 11/18/22 05:00 Nasal Cannula 11/18/22 04:00 98.6 F 118 H 24 137/65 100 Nasal Cannula 11/18/22 04:15 122 H 11/18/22 04:15 122 H 11/18/22 03:00 Nasal Cannula 11/18/22 01:00 Nasal Cannula 11/17/22 23:00 Nasal Cannula 11/18/22 00:10 110 H 11/18/22 00:10 115 H 11/17/22 22:15 129 H 11/17/22 21:00 Nasal Cannula 11/17/22 20:00 Nasal Cannula 11/17/22 19:44 99.0 F 122 H 22 109/54 L 100 Nasal Cannula 11/17/22 19:32 118 H 11/17/22 19:32 121 H 11/17/22 19:32 96 Nasal Cannula 11/17/22 18:34 Nasal Cannula 11/17/22 17:00 Room Air 11/17/22 15:00 Room Air 11/17/22 15:35 98.3 F 114 H 19 123/55 L 97 Nasal Cannula 11/17/22 14:12 110 H 11/17/22 14:12 113 H 11/17/22 14:12 96 Nasal Cannula 11/17/22 13:00 Nasal Cannula 11/17/22 11:00 Nasal Cannula 11/17/22 09:00 Nasal Cannula 11/17/22 11:20 119 H 11/17/22 11:20 111 H O2 Flow Rate 11/18/22 08:00 3 11/18/22 07:40 11/18/22 07:40 11/18/22 07:40 3.5 11/18/22 07:32 3.5 11/18/22 06:52 3 11/18/22 06:04 11/18/22 06:04 11/18/22 06:04 3.5 11/18/22 05:00 3 11/18/22 04:00 3 11/18/22 04:15 11/18/22 04:15 11/18/22 03:00 3 11/18/22 01:00 3 11/17/22 23:00 3 11/18/22 00:10 11/18/22 00:10 11/17/22 22:15 11/17/22 21:00 3 11/17/22 20:00 3 11/17/22 19:44 3 11/17/22 19:32 11/17/22 19:32 11/17/22 19:32 3.5 11/17/22 18:34 3 11/17/22 17:00 11/17/22 15:00 11/17/22 15:35 3 11/17/22 14:12 11/17/22 14:12 11/17/22 14:12 3.5 11/17/22 13:00 3 11/17/22 11:00 3 11/17/22 09:00 3 11/17/22 11:20 11/17/22 11:20 Intake and Output 11/17/22 11/18/22 11/18/22 19:59 03:59 11:59 Intake Total 480 / 690 150 / 690 60 / 690 Output Total 0 / 0 0 / 0 Balance 480 / 690 150 / 690 60 / 690 Intake: Intake, Oral Amount 480 / 690 150 / 690 60 / 690 Output: Output, Urine Amount 0 / 0 0 / 0 Other: Number of Unmeasured Voids 1 1 1 Weight 159 lb 1 oz Patient Weight 11/18/22 11:59 Weight 159 lb 1 oz I & O for Labs for Last 24 Hours: Intake & Output 11/15/22 11/16/22 11/17/22 11/18/22 11:59 11:59 11:59 11:59 Intake Total 470 / 940 1190 / 1190 690 / 690 Output Total 120 / 120 0 / 0 0 / 0 Balance 350 / 820 1190 / 1190 690 / 690 Weight 151 lb 2 oz 155 lb 6.814 oz 159 lb 1 oz Microbiology Reports for the Last 24 Hours: Microbiology 11/16/22 00:19 Blood Blood Culture - Preliminary NO GROWTH AFTER 48 HOURS 11/16/22 00:49 Blood Blood Culture - Preliminary NO GROWTH AFTER 48 HOURS 11/16/22 09:40 Chest Gram Stain - Final Comment:: Alert, pleasant. Oriented x3. ENT exam clear. Lungs have diffuse rhonchi but fairly good air entry. Mass on back is unchanged, perhaps slightly less red around the periphery. Heart rate regular but tachycardic. Trace edema in her hands. No edema in the legs. Assessment and Plan *Assessment and plan (1) Sepsis: Status: Acute Qualifiers: Sepsis acute organ dysfunction status: with acute organ dysfunction Sepsis type: sepsis due to unspecified organism Se
[2022-11-18 09:05] LABS: Basophils # 0.1 K/mm3 (0-0.2); Basophils % 0.1 % (0.1-2.0); Eosinophils % 0.1 % (0.1-12.0); Lymphocytes # 0.9 K/mm3 (0.7-4.5); Lymphocytes % 1.7 % (10-50); Mean Corpuscular HGB Conc 30.1 g/dL (31.8-35.4); Mean Corpuscular Hemoglobin 26.2 pg (27.0-31.2); Mean Corpuscular Volume 87.1 fl (81-99); Mean Platelet Volume 9.4 fl (7.4-10.4); Monocytes # 1.2 K/mm3 (0.1-1.0); Monocytes % 2.2 % (1.7-9.3); Neutrophils # 51.9 K/mm3 (1.8-7.8); Neutrophils % 95.9 % (37.0-80.0); Platelet Count 345 K/mm3 (142-424); Red Blood Count 2.13 M/mm3 (4.20-5.40); Red Cell Distribution Width 17.2 % (11.5-17.5)
[2022-11-18 09:10] LABS: Chloride 101 mmol/L (98-107); Potassium 4.5 mmoL/L (3.5-5.1); Sodium 126 mmol/L (136-145)
[2022-11-18 09:13] LABS: Anion Gap 8.5 mEq/L (5-15); Blood Urea Nitrogen 20 mg/dl (7-17); Calcium 7.5 mg/dl (8.4-10.2); Carbon Dioxide 21 mmol/L (22.0-30.0); Creatinine Clearance Estimated 47 mL/min (50-200); Estimated Glomerular Filt Rate 48 ml/min (>60); GFR (African American) 58 ML/MIN (>60); Glucose 144 mg/dl (74-100)
[2022-11-18 09:52] LABS: Hematocrit 18.5 % (37.0-47.0); White Blood Count 54.1 K/mm3 (4.8-10.8)
[2022-11-18 09:53] LABS: MANUAL DIFFERENTIAL MANUAL DIFFERENTIAL (MANUAL DIFF)
[2022-11-18 12:05] LABS: Hypochromasia 1+; Lymphocytes % 3 % (10-50); Monocytes % 1 % (2-9); Neutrophils % 96 % (42-76); Platelet Estimate Normal; Total Cells Counted 100
[2022-11-18 13:19] LABS: Hemoglobin 5.6 g/dL (12.2-16.2)
--- NOTE | 2022-11-18 18:54 | PC.NURSE ---
pt pleasant and has done well this shift. adequate pain controlled with po pain meds only and fentanyl patch still in place. tolerated blood transfusion well, no signs of reaction, v/s better post h&h timed for 1829. dsg to rt side of back cdi. smith rounded on pt after blood transfusion. no issues/concerns at this time, cb within reach, family at bs.
[2022-11-18 20:21] LABS: Hematocrit 27.8 % (37.0-47.0)
[2022-11-18 20:58] LABS: Hemoglobin 8.9 g/dL (12.2-16.2)
[2022-11-19] VITALS: O2SAT 97
[2022-11-19 04:00] VITALS: BP 134/72; PULSE 96; RESP 16; TEMP 36.6; O2SAT 99; BMI 28.1
[2022-11-19 06:02] LABS: Basophils # 0.1 K/mm3 (0-0.2); Basophils % 0.1 % (0.1-2.0); Hematocrit 25.6 % (37.0-47.0); Hemoglobin 8.3 g/dL (12.2-16.2); Lymphocytes # 0.6 K/mm3 (0.7-4.5); Lymphocytes % 0.8 % (10-50); Mean Corpuscular HGB Conc 32.3 g/dL (31.8-35.4); Mean Corpuscular Hemoglobin 27.9 pg (27.0-31.2); Mean Corpuscular Volume 86.5 fl (81-99); Mean Platelet Volume 9.1 fl (7.4-10.4); Monocytes # 1.2 K/mm3 (0.1-1.0); Monocytes % 1.8 % (1.7-9.3); Neutrophils # 63.2 K/mm3 (1.8-7.8); Neutrophils % 97.3 % (37.0-80.0); Platelet Count 308 K/mm3 (142-424); Red Blood Count 2.96 M/mm3 (4.20-5.40); Red Cell Distribution Width 17.2 % (11.5-17.5)
[2022-11-19 06:09] LABS: Chloride 101 mmol/L (98-107); MANUAL DIFFERENTIAL MANUAL DIFFERENTIAL (MANUAL DIFF); Potassium 4.8 mmoL/L (3.5-5.1); Sodium 130 mmol/L (136-145)
[2022-11-19 06:11] LABS: Blood Urea Nitrogen 26 mg/dl (7-17); Creatinine Clearance Estimated 52 mL/min (50-200); Estimated Glomerular Filt Rate 53 ml/min (>60); GFR (African American) 65 ML/MIN (>60)
[2022-11-19 06:12] LABS: Anion Gap 11.8 mEq/L (5-15); Calcium 7.5 mg/dl (8.4-10.2); Carbon Dioxide 22 mmol/L (22.0-30.0); Glucose 213 mg/dl (74-100)
--- NOTE | 2022-11-19 06:12 | PC.NURSE ---
notified ella of critical wbc 65. no new orders received
[2022-11-19 06:40] VITALS: PULSE 94
[2022-11-19 07:27] VITALS: PULSE 105
[2022-11-19 08:00] VITALS: BP 117/55; PULSE 106; RESP 21; TEMP 36.5; O2SAT 98
[2022-11-19 08:18] LABS: Lymphocytes % 1 % (10-50); Monocytes % 1 % (2-9); Neutrophils % 98 % (42-76); Total Cells Counted 100
[2022-11-19 08:19] LABS: Platelet Estimate Normal; RBC Morphology Normal
[2022-11-19 08:42] LABS: Vancomycin,Trough 13.5 ug/mL (5.0-10.0)
--- NOTE | 2022-11-19 08:57 | EXP.PHA.CONS ---
Pharmacy Consult Date: 11/19/22 Time: 08:57 Referring provider: DR. WHALEN Reason for Consult:: VANCOMYCIN TROUGH LEVEL Allergies Allergy/AdvReac Type Severity Reaction Status Date / Time No Known Allergies Allergy Verified 11/16/22 00:33 Home Medications Medication Instructions Recorded Confirmed Type acetaminophen 325 mg tablet 650 mg PO QID PRN Pain, Mild 11/16/22 11/16/22 History (Tylenol) apixaban 2.5 mg tablet (Eliquis) 2.5 mg PO BID Blood Thinner 11/16/22 11/16/22 History atorvastatin 20 mg tablet 20 mg PO HS High Cholesterol 11/16/22 11/16/22 History budesonide 160 mcg-glycopyr 9 2 puff inhalation BID Breathing 11/16/22 11/16/22 History mcg-formot 4.8 mcg/actuation HFA Problems inhaler (Breztri Aerosphere) bumetanide 1 mg tablet 1 mg PO DAILY Diuretic 11/16/22 11/16/22 History cetirizine 10 mg tablet (Zyrtec) 10 mg PO DAILY Allergy Symptoms 11/16/22 11/16/22 History ferrous gluconate 324 mg (37.5 mg 324 mg PO BID Supplement 11/16/22 11/16/22 History iron) tablet guaifenesin 600 mg tablet, 600 mg PO BID Cough 11/16/22 11/16/22 History extended release 12 hr (Mucinex) hydroxyzine HCl 25 mg tablet 25 mg PO HS Anxiety 11/16/22 11/16/22 History ipratropium 0.5 mg-albuterol 3 mg 3 ml inhalation Q4H PRN Breathing 11/16/22 11/16/22 History (2.5 mg base)/3 mL nebulization Problems soln levothyroxine 25 mcg tablet 25 mcg PO DAILY Thyroid 11/16/22 11/16/22 History (Synthroid) metoprolol succinate 25 mg 25 mg PO DAILY High Blood Pressure 11/16/22 11/16/22 History tablet,extended release 24 hr (Toprol XL) mirtazapine 15 mg tablet 15 mg PO HS Restless legs 11/16/22 11/16/22 History oxycodone 5 mg tablet 5 mg PO Q4H PRN Pain, Moderate 11/16/22 11/16/22 History pantoprazole 40 mg tablet,delayed 40 mg PO DAILY Acid Reflux 11/16/22 11/16/22 History release (Protonix) potassium chloride 20 mEq 10 meq PO BID Supplement 11/16/22 11/16/22 History tablet,extended release pregabalin 25 mg capsule 25 mg PO HS Restless legs 11/16/22 11/16/22 History roflumilast 500 mcg tablet 500 mcg PO DAILY Copd 11/16/22 11/16/22 History (Daliresp) New Prescriptions to Start Prescriptions: Height: 1.6 m Weight: 72.15 kg Laboratory Results:: Laboratory Results - last 24 hr 11/16/22 03:10: Blood Type B Positive, Antibody Screen Negative, Crossmatch (AHG) See Detail 11/18/22 08:50: WBC 54.1 H* D, RBC 2.13 L, Hgb 5.6 L*, Hct 18.5 L*, MCV 87.1, MCH 26.2 L, MCHC 30.1 L, RDW 17.2, Plt Count 345, MPV 9.4, Neut % (Auto) 95.9 H, Lymph % (Auto) 1.7 L, [place] % (Auto) 2.2, Eos % (Auto) 0.1, Baso % (Auto) 0.1, Neut # (Auto) 51.9 H, Lymph # (Auto) 0.9, [place] # (Auto) 1.2 H, Eos # (Auto) 0.0, Baso # (Auto) 0.1, Total Counted 100, Neutrophils % (Manual) 96 H, Lymphocytes % (Manual) 3 L, Monocytes % (Manual) 1 L, Platelet Estimate Normal, Hypochromasia 1+, Sodium 126 L, Potassium 4.5, Chloride 101, Carbon Dioxide 21 L, Anion Gap 8.5, BUN 20 H, Creatinine 1.10 H, Estimated Creat Clear 47, Estimated GFR 48 L, Est GFR ( Amer) 58 L, Glucose 144 H, Calcium 7.5 L 11/18/22 17:35: Hgb 8.9 L D, Hct 27.8 L 11/19/22 05:45: WBC 65.0 H*, RBC 2.96 L D, Hgb 8.3 L, Hct 25.6 L, MCV 86.5, MCH 27.9, MCHC 32.3, RDW 17.2, Plt Count 308, MPV 9.1, Neut % (Auto) 97.3 H, Lymph % (Auto) 0.8 L, [place] % (Auto) 1.8, Eos % (Auto) 0.0 L, Baso % (Auto) 0.1, Neut # (Auto) 63.2 H, Lymph # (Auto) 0.6 L, [place] # (Auto) 1.2 H, Eos # (Auto) 0.0, Baso # (Auto) 0.1, Total Counted 100, Neutrophils % (Manual) 98 H, Lymphocytes % (Manual) 1 L, Monocytes % (Manual) 1 L, Platelet Estimate Normal, RBC Morphology Normal, Sodium 130 L, Potassium 4.8, Chloride 101, Carbon Dioxide 22, Anion Gap 11.8, BUN 26 H D, Creatinine 1.00, Estimated Creat Clear 52, Estimated GFR 53 L, Est GFR ( Amer) 65, Glucose 213 H D, Calcium 7.5 L 11/19/22 08:05: Vancomycin Trough 13.5 H Medical History: Medical History (Updated 11/18/22 @ 08:45 by Harrison Whalen MD) Chronic pain COPD (trauma therapist
--- NOTE | 2022-11-19 09:16 | SW/DCPLANNER ---
Addendum entered by Yadira Castañeda 11/19/22 10:57: Saba called w/ Hospice and stated that they will evaluate this patient once she returns home today. Addendum entered by Yadira Castañeda 11/19/22 09:20: [facility] phone number: [phone] fax number: [phone] Original Note: During morning rounds MD suggested Hospice services for this patient. Patient and two daughters present during rounds: patient is agreeable to Hospice services. Patient will discharge home today in [facility]: I will follow up w/ [facility] and fax patient information this AM.
--- NOTE | 2022-11-19 09:30 | EXP.DC.SUM ---
General Admission date:: 11/16/22 Discharge date: 11/19/22 HPI HPI HPI: The following is obtained from the admission history and physical: 77-year-old female with history of COPD, and lung cancer, diagnosed several months ago, with widespread metastasis to bone, liver, now pancreas, lymph nodes and right back chest wall. She, approximately 6 weeks ago, had a biopsy of the chest wall spot done in [place], it was a punch biopsy and as the patient was on Eliquis at the time she had significant bleeding. The bleeding was attempted to be stopped with silver nitrate application but moderately unsuccessful. She continued to bleed, had a lot of swelling and pain. I saw her a couple of days after the incident we prescribed antibiotics which seemed to improve her situation. In the interim, she has been in [place] getting chemotherapy and radiation, her last session was 6 weeks ago[address] Had a CT scan 2 days ago that unfortunately showed significant disease progression and spite of aggressive chemotherapy. Late last night she began to have fevers, increasing drainage from the right back tumor, surrounding redness and tachycardia. Brought to the ER here given her preference to be admitted at [facility] rather than in [place] secondary to family location here. In the ER she was found to have significant leukocytosis, evidence of sepsis with tachycardia, given Zosyn and vancomycin and admitted to the hospital. This morning she is in good spirits, pleasant in spite of her disease and pain and reports that she is little short of breath at baseline and otherwise more comfortable than on admission. Hospital Course Hospital Course Hospital Course: Patient was admitted. Treated for sepsis. White counts improved. She did have low red cell counts attributed to slow GI bleed from recent Eliquis and is well as her significant medical problems and chronic disease issues. She was given 2 units of packed cells and this improved her hemoglobin very nicely. Antibiotics were given. Steroids were added for her wheezing which improved her symptoms. Reviewed CT scans and x-rays from outside facility which showed widely metastatic disease that has progressed and spite of aggressive chemotherapy. She is also received radiation therapy to the lesion on her back. It smaller but certainly not in any kind of remission state. Family and patient reports that no further chemo is planned. Had a discussion about hospice care. They are willing to go into hospice care and this is very very reasonable given her current disease state and lack of further treatment options. Plan will be to discharge today with cefdinir for the cellulitis around her back wound, she is on fentanyl 25 mg patches. We will continue these for cancer related pain and she has oxycodone at home for breakthrough pain. We will also do steroids to help with lung disease. She will probably be on daily steroids from now on given her COPD superimposed on lung cancer. I will follow her next week as an outpatient. She lives in [facility] and we will arrange hospice services through the hospice organization in [facility]. Has excellent family support and has arrangements for 06/09 care in her home in [facility]. Medication list is as noted in the reconciliation form. Difficult decision is the Eliquis. She certainly is hypercoagulable but has evidence of active slow GI bleed. I told her personally I would recommend stopping the Eliquis given risk-benefit ratio but this was ultimately up to her and her own personal preference regarding ongoing risk versus benefit. Exam Data for Last 24 hours Vital signs and Labs for Last 24 Hours: Temp Pulse Resp BP Pulse Ox O2 Del Method O2 Flow Rate 97.7 F 106 H 21 117/55 L 98 Nasal Cannula 3.5 11/19/22 08:00 11/19/22 08:00 11/19/22 08:00 11/19/22 08:00 11/19/22 08:00 11/19/22 08:00 11/19/22 06:46 Laboratory Results - last 24 hr
== END 2022-11-19 12:45 | disposition hospice, home (50) | DRG 871 ==
LOC: ER 01:13 → 2ND 02:55
PROVIDERS: Admitting Provider Family Medicine; Emergency Provider Emergency Medicine; PCP Internal Medicine Adolescent Medicine; Visit Provider Internal Medicine Adolescent Medicine
DX: A41.9 Sepsis, unspecified organism (principal); E43 Unspecified severe protein-calorie malnutrition; J96.21 Acute and chronic respiratory failure with hypoxia; C34.90 Malignant neoplasm of unspecified part of unspecified bronchus or lung; E87.1 Hypo-osmolality and hyponatremia; C79.51 Secondary malignant neoplasm of bone; C78.7 Secondary malignant neoplasm of liver and intrahepatic bile duct; C77.9 Secondary and unspecified malignant neoplasm of lymph node, unspecified; C78.89 Secondary malignant neoplasm of other digestive organs; L03.818 Cellulitis of other sites; C79.89 Secondary malignant neoplasm of other specified sites; R65.20 Severe sepsis without septic shock; Z79.01 Long term (current) use of anticoagulants; Z87.891 Personal history of nicotine dependence; I10 Essential (primary) hypertension; Z86.718 Personal history of other venous thrombosis and embolism; Z86.711 Personal history of pulmonary embolism; Z99.81 Dependence on supplemental oxygen; J44.9 Chronic obstructive pulmonary disease, unspecified; G89.29 Other chronic pain; Z66 Do not resuscitate; Z68.28 Body mass index [BMI] 28.0-28.9, adult; D63.0 Anemia in neoplastic disease; G25.81 Restless legs syndrome
CPT/HCPCS: 36415; 71275; 76604; 80048; 80053; 80202; 81001; 82803; 85007; 85014; 85018; 85025; 86850; 87040; 87070; 87205; 93005; 94640; 94760; 94761; 97110; 97116; 97163; 97165; 97530; 97535; 99291; J0696; J2543; J3370; P9016; Q9967